=== PATIENT | female | born 1990 | race Caucasian/White ===

== ENCOUNTER 2020-06-13 15:30 | Emergency (ER) | payer MEDICAID ==
[~2020-06-13] VITALS: Ht 167.6 cm; Wt 62.1 kg
--- NOTE | 2020-06-13 15:44 | NUR ---
Patient presents to ER with c/o of feeling like "my heart is going to come out of my chest." and "I am having trouble breathing." and c/o of dizziness. Pt 02 sat noted at 98% room air. Patient denies pain. No acute distress. Awaiting MD gibbs.
[2020-06-13 16:32] LABS: BASOPHILS % (AUTO) 0.3 % (0.0-2.0); EOSINOPHILS # (AUTO) 0.1 K/uL (0.0-0.7); EOSINOPHILS % (AUTO) 0.8 % (0.0-7.0); HEMOGLOBIN 13.4 g/dL (10.9-14.3); LYMPHOCYTES # (AUTO) 1.6 K/uL (20.0-40.0); LYMPHOCYTES % (AUTO) 24.4 % (20.5-51.5); MEAN CORPUSCULAR HEMOGLOBIN 29.1 uug (24.7-32.8); MEAN CORPUSCULAR HGB CONC 33 g/dL (32.3-35.6); MONOCYTES # (AUTO) 0.3 K/uL (2.0-10.0); NEUTROPHILS # (AUTO) 4.6 K/uL (1.8-8.9); NEUTROPHILS % (AUTO) 69.5 % (38.5-71.5); PLATELET COUNT (AUTO) 252 K/uL (179-408); RED BLOOD CELL COUNT(AUTO) 4.59 MIL/uL (3.63-4.92); WHITE BLOOD COUNT (AUTO) 6.7 K/uL (3.8-11.8)
[2020-06-13 16:39] LABS: CREATININE 0.6 mg/dL (0.6-1.3); POTASSIUM 4.2 mmol/L (3.5-5.1)
[2020-06-13 16:44] LABS: BILIRUBIN,DIRECT 0.2 mg/dL (0.0-0.2); BILIRUBIN,TOTAL 0.6 mg/dL (0.2-1.0); TOTAL PROTEIN, SERUM 7.4 g/dL (6.4-8.2)
--- NOTE | 2020-06-13 17:30 | NUR ---
Per Dr. Turner, pt stable for discharge. DC instructions given and copy of labs and radiology report. Patient left ER in stable condition, in no acute distress with steady gait.
[2020-06-13 17:37] VITALS: BP 101/58
== END 2020-06-13 17:30 | disposition home or self-care (01) ==
LOC: ER 15:32
DX: R00.2 Palpitations (principal)
CPT/HCPCS: 36415; 70030-TC; 71045; 84443; 85025; 85730; 93005; A4663